=== PATIENT | male | born 1975 | race Caucasian/White ===

== ENCOUNTER 2017-01-27 21:22 | Inpatient (IN) | payer OTHER ==
--- NOTE | ~2017-01-27 | HP ---
Unit #: [id number] #: [id number] Patient: TRUMAN BUCK [id number] [place] [address] [id number] MR#: [id number] NAME: TRUMAN BUCK ROOM: P204 Age: 41 Sex: M Admission Date: 01/27/2017 : 1975 Attending Physician: Eleni Fink M.D. Admitting Physician: Eleni Fink M.D. Primary Care Physician: Primary Care Physician No HISTORY AND PHYSICAL HISTORY OF PRESENT ILLNESS Truman is a 41 year old admitted to [address] [place] [address] because of his drug use which includes heroin and fentanyl. PAST MEDICAL HISTORY 1. Long history of poly-illicit substance abuse to include cocaine, opioids, fentanyl and heroin. 2. History of alcohol abuse. 3. Hepatitis C. 4. Factor V deficiency. PAST SURGICAL HISTORY Nothing reported. ALLERGIES Morphine, NSAIDs. SOCIAL HISTORY Smokes 1 pack per day. Drinks alcohol frequently. Has a long history of illicit substance abuse to include IV drugs. FAMILY HISTORY Medically noncontributory. REVIEW OF SYSTEMS CONSTITUTIONAL: No fever or chills. HEENT: Denies any sore throat, ear pain or runny nose. CARDIOVASCULAR: Denies chest pain, irregular heart rhythm or palpitations. CHEST: Denies shortness of breath or cough. No hemoptysis. GASTROINTESTINAL: Denies nausea, vomiting, diarrhea or chronic constipation. ENDOCRINE: Denies history of increased thirst or urination. No recent significant weight loss or gain. GENITOURINARY: Denies dysuria, frequency, or hematuria. SKIN: Denies any rashes. HEMATOLOGIC: Denies history of increased bleeding or bruising. MUSCULOSKELETAL: Denies any hot, swollen joints. No generalized muscle pain. NEUROLOGIC: Denies problems with vision or speech. No frequent, severe headaches. No numbness, tingling or weakness in any extremities. Denies loss of bladder or bowel control. CURRENT MEDICATIONS Unit #: [id number] #: [id number] Patient: TRUMAN BUCK 1. Detox protocol. 2. Effexor XR 75 mg q.h.s. 3. Requip 0.25 mg q.h.s. 4. Xarelto 20 mg daily. 5. Seroquel 100 mg daily. 6. Minipress 6 mg q.h.s. PHYSICAL EXAMINATION GENERAL: Alert, well-nourished, in no apparent distress. VITAL SIGNS: Blood pressure 100/64, heart rate 80, respirations 16, temperature 98.6. WEIGHT: 192. HEIGHT: 5 feet 11 inches. SKIN: Warm and dry without rash or lesion. HEENT: Normocephalic. TMs not viewed. Oral and nasal passages clear. Conjunctivae clear. PERRLA. EOMs intact. NECK: Supple without lymphadenopathy or thyromegaly. HEART: Regular rate and rhythm without murmur. LUNGS: Clear. ABDOMEN: Soft, nontender. : Not done. EXTREMITIES: No evidence of cyanosis, clubbing or edema. Moves all without focal deficit. NEUROLOGICAL: Grossly within normal limits. Cranial Nerves: II: Visual newell are intact. III, IV AND : Extraocular movements are intact. Pupils are equal, round and reactive to light. V: Facial sensation is grossly normal. VII: Facial movements and expression are normal. VIII: Auditory acuity grossly intact. IX, X: Uvula is midline. Phonation is normal. XI: Patient shrugs shoulders and turns head normally. XII: Tongue protrudes in the midline. Sensory and Motor Function: Sensory and motor sensation is grossly normal. Motor: moves all extremities well. Coordination: Gait is normal. Deep Tendon Reflexes: Intact. IMPRESSION Psychiatric admission. RECOMMENDATIONS PSYCHIATRIC: Per psychiatrist. MEDICAL: 1. See no contraindications to participate in facility's activities. 2. Continue Xarelto. MEDICAL PROGNOSIS Good. MEDICAL CONDITION Stable. Dictated by... [place] P.A.-C. for Casie Monterroso M.D. Unit #: [id number] #: [id number] Patient: TRUMAN BUCK CAMILA/jacquelin TD: 01/28/2017 21:50 JOB #: [id number] HISTORY AND PHYSICAL Page 1 of 1 X [place] HISTORY AND PHYSICAL
--- NOTE | ~2017-01-27 | PA ---
Unit #: [id number] #: [id number] Patient: FLORIDA HAMILTON [id number] [facility] [address] [place] [address] [id number] I MR#: [id number] NAME: FLORIDA HAMILTON ROOM: P204 Age: 41 Sex: M Admission Date: 01/27/2017 : 1975 Date of Assessment: 01/28/2017 Attending Physician: Eleni Fink M.D. Admitting Physician: Eleni Fink M.D. PSYCHIATRIC ASSESSMENT DATE OF SERVICE 01/28/2017. IDENTIFYING DATA Mr. Hamilton is a 41-year-old white male, who is a resident of [place], [place] and was self-referred to the hospital on a voluntary basis. CHIEF COMPLAINT "I overdosed on heroin and fentanyl." HISTORY OF PRESENT ILLNESS Mr. Hamilton is a 41-year-old white male with history of substance abuse and dependence, was brought to the hospital by his fiancee for self-reported overdose on heroin and fentanyl "about 150 dollars IV." The patient reports another recent overdose on Wellbutrin, which he reports hospitalization at [facility]. Reports that he is still having suicidal thoughts before to leave the hospital. He would overdose and also has been homicidal thoughts towards "people in general." He reports that he has been having thoughts of "shooting." He reports that he does not have any access to gun and reports that he has had suicidal thoughts because his girlfriend stated that she will leave him today if he did not stop using drugs. He also reports hearing male voices which commanded to telling him to kill himself. His girlfriend stated that the patient is out of control "I'm worried that he is going to kill himself." The patient was seen to be anxious, withdrawn, and does report some significant depression, anxiety, irritability, consequences of addiction, inability to function, and take care of himself and having strange relationships and expressing feelings of hopelessness and helplessness, and suicidal ideations and as such, recommendation for inpatient level of care for safety and stabilization was made and the patient was transferred to us. SUBSTANCE ABUSE HISTORY The patient reports history of alcohol, cocaine, and opioid abuse, and currently opioids appear to be his drug of choice as he reports that he has been using 2 g of heroin on daily basis and has been drinking a fifth of whiskey on daily basis and has also been using cocaine on a daily basis. PAST PSYCHIATRIC HISTORY The patient has had history of inpatient psychiatric hospitalization at [facility], and has been diagnosed and treated for mood disorder and is currently on a combination of Seroquel, prazosin, and Unit #: [id number] #: [id number] Patient: FLORIDA HAMILTON. PAST MEDICAL HISTORY The patient's medical history is significant for factor V deficiency and hepatitis C. ALLERGIES Morphine and NSAIDS. PERSONAL AND SOCIAL HISTORY A 41-year-old white male, who reports that he lives at home with his girlfriend and has fairly decent social support system. MENTAL STATUS EXAMINATION Middle-aged white male, who was casually dressed with marginal personal hygiene, appears to be in distress and discomfort. He was awake and alert on interaction with intact orientation to time, place, and person. His mood was anxious and depressed with a congruent affect. His speech was slow and restricted in content. His thought processes were disorganized with some looseness of associations and suicidal ideations. His insight and judgment remain significantly impaired. DIAGNOSTIC IMPRESSION Psychiatric: Major depressive disorder, recurrent, moderate, without psychotic features; opioid dependence, moderate and acute withdrawals; alcohol dependence, moderate and acute withdrawals. Medical: Hepatitis C, factor V deficiency. Stressors: Moderate psychosocial stressors. TREATMENT PLAN 1. The patient has presented with history of substance abuse and mood disorder, and has been decompensating and will need inpatient hospitalization for detoxification, safety, and stabilization. We will start him on detox protocol. We will closely monitor for any worsening withdrawal symptoms. 2. Supportive therapy was provided to the patient. 3. Safe, structured, and nourishing environment will be provided. ESTIMATED LENGTH OF STAY 5 to 7 days. ABILITY TO HELP SELF Limited. WILLINGNESS TO HELP SELF The patient appears to be willing to help self. STRENGTHS 1. Communicative. 2. Cooperative. PROBLEMS 1. Chronic dysphoric symptoms. 2. Poor social support system. DISCHARGE CRITERIA This will be contingent upon the patient's ability to show resolution of his depression and anxiety and his ability to stay safe to himself, particularly after discharge from the hospital. Unit #: [id number] #: [id number] Patient: FLORIDA HAMILTON Dictated by... Uzair Gar/deyanira TD: 01/28/2017 07:15 JOB #: [id number] PSYCHIATRIC ASSESSMENT Page 1 of 1 X Eleni Fink MD PSYCHIATRIC ASSESSMENT
--- NOTE | ~2017-01-27 | DS ---
Unit #: [id number] #: [id number] Patient: FLORIDA HAMILTON [id number] [facility] [address] [id number] I MR#: [id number] NAME: FLORIDA HAMILTON ROOM: P204 Age: 41 Sex: M Admission Date: 01/27/2017 : 1975 Discharge Date: 02/01/2017 Attending Physician: Eleni Fink M.D. Primary Care Physician: Primary Care Physician No DISCHARGE SUMMARY IDENTIFYING DATA Mr. Hamilton is a 41-year-old white male, who is a resident of [place], [place], and was self-referred to the hospital. DISCHARGE DIAGNOSES Psychiatric: Major depressive disorder, recurrent, moderate, without psychotic features; opioid dependence, moderate and acute withdrawals; alcohol dependence, moderate and acute withdrawals. Medical: Hepatitis C, factor V deficiency. Stressors: Moderate psychosocial stressors. HISTORY OF PRESENT ILLNESS Please see initial psychiatric evaluation for details. PAST PSYCHIATRIC HISTORY Please see initial psychiatric evaluation for details. PAST MEDICAL HISTORY Please see initial psychiatric evaluation for details. HOSPITAL COURSE The patient was admitted to the adult psychiatric and chemical dependency unit at [facility] luisa Weinstein and was oriented to the hospital environment. Routine p.r.n. medications were initiated, and he was started on the alcohol and opioid detox protocol and he was closely monitored. He was anxious, withdrawn, and rather seclusive to himself and was noticed to be unkempt, disheveled, and unable to carry on a meaningful conversation. However, he was exhibiting significant depressive symptoms and Effexor XR and Seroquel were initiated and he was closely monitored. He was taking the medications regularly and was able to come out of the detox without any complications and was willing to continue treatment on an outpatient basis and as such, it was decided that he will be discharged home and will continue treatment on an outpatient basis. DISCHARGE MEDICATIONS Seroquel 100 mg at bedtime for mood, Xarelto 20 mg a day for hypercoagulability, Requip 0.25 mg at bedtime for restless legs syndrome, Minipress 6 mg at bedtime for hypertension, Effexor XR 75 mg a day for depression. DISCHARGE CONDITION Stable. PROGNOSIS Unit #: [id number] #: [id number] Patient: FLORIDA HAMILTON. Dictated by... Uzair Gar/deyanira TD: 02/01/2017 07:21 JOB #: [id number] DISCHARGE SUMMARY Page 1 of 1 X Eleni Fink MD X DISCHARGE SUMMARY
--- NOTE | ~2017-01-27 | PN ---
Unit #: [id number] #: [id number] Patient: FLORIDA HAMILTON [id number] [facility] [address] [place] [address] [id number] I MR#: [id number] NAME: FLORIDA HAMILTON ROOM: P204 Age: 41 Sex: M Admission Date: 01/27/2017 : 1975 Attending Physician: Eleni Fink M.D. Admitting Physician: Eleni Fink M.D. Primary Care Physician: Primary Care Physician Sandy ROD NOTES DATE 01/30/2017 DISCUSSION Mr. Hamilton is a 41-year-old, white male with substance abuse and mood disorder who was seen today and chart was reviewed and case was discussed with the staff. He has been anxious, withdrawn and rather seclusive to himself. Meanwhile, he has been cooperative with the treatment recommendations. He has been taking the medication and tolerating them fairly well with no reported side effects. MENTAL STATUS EXAM Middle-aged white male who was casually dressed with fair personal hygiene, appears to be in no acute distress or discomfort. He was awake and alert on interaction with intact orientation. His mood was anxious and depressed with congruent affect. He denies any suicidal or homicidal ideation. His insight and judgement remains slightly impaired. TREATMENT PLAN 1. We will continue him on his current treatment protocol. We will monitor his response to the medication and make further adjustments as needed. 2. We will continue to follow up. Dictated by... Uzair Gar/travis TD: 01/31/2017 22:55 JOB #: [id number] Unit #: [id number] #: [id number] Patient: FLORIDA HAMILTON LUPIS PROGRESS NOTES Page 1 of 1 X Eleni Fink MD PROGRESS NOTE
--- NOTE | ~2017-01-27 | PN ---
Unit #: [id number] #: [id number] Patient: FLORIDA HAMILTON [id number] [facility] [address] [place] [address] [id number] I MR#: [id number] NAME: FLORIDA HAMILTON ROOM: P204 Age: 41 Sex: M Admission Date: 01/27/2017 : 1975 Attending Physician: Eleni Fink M.D. Admitting Physician: Eleni Fink M.D. Primary Care Physician: Primary Care Physician Sandy ROD NOTES DATE 01/31/2017 DISCUSSION Mr. Hamilton is a 41-year-old white male with substance abuse and mood disorder who was seen today and chart was reviewed and case was discussed with the staff. He has been anxious, withdrawn though appears to be doing better in his mood and functioning and has been cooperative with treatment recommendations. He has been taking medications and tolerating them fairly well with no reported side effects. MENTAL STATUS EXAMINATION Middle-aged white male who was casually dressed with fair personal hygiene and appears to be in no acute distress or discomfort. He was awake and alert with intact orientation. His mood was anxious with congruent affect. He denies any suicidal or homicidal ideations. His insight and judgement remains slightly impaired. TREATMENT PLAN 1. Will continue on his current medications and treatment protocol. Will monitor response and make further adjustments as needed. 2. Will continue to follow up. Dictated by... Eleni Fink M.D. IAA/sivah TD: 02/01/2017 22:55 JOB #: [id number] Unit #: [id number] #: [id number] Patient: FLORIDA HAMILTON LUPIS PROGRESS NOTES Page 1 of 1 X Eleni Fink MD PROGRESS NOTE
--- NOTE | ~2017-01-27 | PN ---
Unit #: [id number] #: [id number] Patient: FLORIDA HAMILTON [id number] [facility] [address] [place] [address] [id number] I MR#: [id number] NAME: FLORIDA HAMILTON ROOM: P204 Age: 41 Sex: M Admission Date: 01/27/2017 : 1975 Attending Physician: Eleni Fink M.D. Admitting Physician: Eleni Fink M.D. Primary Care Physician: Primary Care Physician Sandy ROD NOTES DATE 01/29/2017 DISCUSSION Mr. Hamilton is a 41-year-old, white male who was seen today and chart was reviewed and case was discussed with the staff. He has been anxious, withdrawn though has not shown any agitation, irritability and has been cooperative with treatment recommendations as he has been taking medications and tolerating them fairly well with no reported side effects. MENTAL STATUS EXAM Middle-aged white male who was casually dressed with fair personal hygiene, appears to be in no acute distress or discomfort. He was awake and alert with impaired attention and concentration. His mood was anxious with congruent affect. He denies any suicidal or homicidal ideation. His insight and judgement remains slightly impaired. TREATMENT PLAN 1. We will continue him on his current medications and treatment protocol. We will monitor his response to medications and make further adjustments as needed. 2. We will continue to follow up. Dictated by... Uzair Gar/travis TD: 01/31/2017 03:28 JOB #: [id number] Unit #: [id number] #: [id number] Patient: FLORIDA HAMILTON [facility]ADDY PROGRESS NOTES Page 1 of 1 X Eleni Fink MD PROGRESS NOTE
[2017-01-29 12:14] LABS: BASOPHIL% 0.5 % (0-2.5); EOSINOPHIL# 0.3 X10e3 (0-0.7); EOSINOPHIL% 3.4 % (0.0-7.0); HEMATOCRIT 47.8 % (38.0-50.0); HEMOGLOBIN 15.6 gm/dL (13.0-16.0); LYMPHOCYTE# 2.3 X10e3 (1.0-3.5); MEAN CELL VOLUME 85.8 FL (83-96); MEAN CORPUSCULAR HEMOGLOBIN 27.9 PG (28-34); MEAN CORPUSCULAR HGB CONC 32.5 g/dL (30-36); MEAN PLATELET VOLUME 9.3 FL (6.5-11.5); MONOCYTE# 0.3 X10e3 (0-1.0); MONOCYTE% 3.5 % (3.0-12.0); NEUTROPHIL# 5.6 X10e3 (1.5-7.1); NEUTROPHIL% 65.6 % (40-75); PLATELET COUNT 226 X10e3 (140-420); RED BLOOD COUNT 5.57 X10e (3.90-5.60); RED CELL DISTRIBUTION WIDTH 14.8 % (11.0-15.5); WHITE BLOOD COUNT 8.5 X10e3 (4.0-10.5)
[2017-01-29 12:15] LABS: DIFF IND NO
[2017-01-29 13:00] LABS: URINE APPEARANCE CLOUDY; URINE BILIRUBIN NEG (NEG); URINE BLOOD NEG (NEG); URINE COLOR YELLOW; URINE GLUCOSE NEG (NEG); URINE KETONE NEG (NEG); URINE LEUKOCYTE ESTERASE NEG (NEG); URINE NITRATE NEG (NEG); URINE PROTEIN NEG (NEG); URINE SPECIFIC GRAVITY 1.021 (1.003-1.035)
[2017-01-29 13:18] LABS: THYROID STIMULATING HORMONE 0.54 uIU/ml (0.34-5.60)
[2017-01-29 13:24] LABS: ALBUMIN SERUM 3.6 g/dL (3.5-5.0); BILIRUBIN,TOTAL 0.7 mg/dL (0.2-2.0); BUN/CREATININE RATIO 13.63; CREATININE SERUM 1.1 mg/dL (0.6-1.4); GLOM FILT RATE Estimated 83.5 mL/min (>60); POTASSIUM 4.5 mmol/L (3.5-5.1); PROTEIN TOTAL SERUM 6.4 g/dL (6.0-8.3)
[2017-01-29 13:25] LABS: FREE THYROXIN (T4) 0.88 ng/dL (0.58-1.64)
[2017-01-29 13:35] LABS: AMPHETAMINE NEG (NEG); BARBITURATES NEG (NEG); BENZODIAZEPINES POS (NEG); COCAINE POS (NEG); MARIJUANA NEG (NEG); OPIATES POS (NEG); TRICYCLIC ANTIDEPRESSANTS NEG (NEG); U METHADONE NEG (NEG)
[2017-01-30 11:09] LABS: URINE APPEARANCE CLOUDY; URINE BILIRUBIN NEG (NEG); URINE BLOOD NEG (NEG); URINE COLOR YELLOW; URINE GLUCOSE NEG (NEG); URINE KETONE NEG (NEG); URINE LEUKOCYTE ESTERASE NEG (NEG); URINE NITRATE NEG (NEG); URINE PROTEIN NEG (NEG); URINE UROBILINOGEN 0.2 MG/DL (NEG)
[2017-01-30 11:20] LABS: AMPHETAMINE NEG (NEG); BARBITURATES NEG (NEG); BENZODIAZEPINES POS (NEG); COCAINE POS (NEG); MARIJUANA NEG (NEG); OPIATES NEG (NEG); TRICYCLIC ANTIDEPRESSANTS NEG (NEG); U METHADONE NEG (NEG)
[2017-02-09] MEDS ORDERED: TEGRETOL XR PO (02:14)
[2017-02-09] MEDS ORDERED: SEROQUEL100 MG PO (02:14)
[2017-02-09] MEDS ORDERED: XARELTO20 MG PO (02:15)
== END 2017-02-01 10:00 | DRG 885 ==
LOC: P2S 21:22
PROVIDERS: Psychiatry & Neurology Psychiatry
PROC: HZ2ZZZZ Detoxification Services for Substance Abuse Treatment (ICD-10-PCS; principal; 2017-01-27)
DX: F33.1 Major depressive disorder, recurrent, moderate (principal); D68.51 Activated protein C resistance; F11.23 Opioid dependence with withdrawal; F10.239 Alcohol dependence with withdrawal, unspecified; B19.20 Unspecified viral hepatitis C without hepatic coma; F41.9 Anxiety disorder, unspecified; F17.210 Nicotine dependence, cigarettes, uncomplicated; Z79.01 Long term (current) use of anticoagulants
CPT/HCPCS: 80053; 80307; 81003; 84439; 84443; 85025

== ENCOUNTER 2017-02-09 02:24 | Emergency (ER) | payer OTHER ==
[~2017-02-09 02:24] MED LIST: SEROQUEL100 MG PO; TEGRETOL XR PO; XARELTO20 MG PO
[2017-02-09] MEDS ORDERED: VEETIDS 500500 M1 PO (02:42)
== END 2017-02-09 02:50 | disposition home or self-care (01) ==
LOC: SED 02:24
DX: K08.89 Other specified disorders of teeth and supporting structures (principal); B19.20 Unspecified viral hepatitis C without hepatic coma; J45.909 Unspecified asthma, uncomplicated; F41.8 Other specified anxiety disorders; F17.210 Nicotine dependence, cigarettes, uncomplicated; Z90.49 Acquired absence of other specified parts of digestive tract; Z90.89 Acquired absence of other organs; Z88.5 Allergy status to narcotic agent; Z88.8 Allergy status to other drugs, medicaments and biological substances; Z91.013 Allergy to seafood
CPT/HCPCS: 99283

== ENCOUNTER 2017-05-18 13:07 | Inpatient (IN) | payer OTHER ==
[~2017-05-18] VITALS: Ht 180.3 cm; Wt 83.9 kg
--- NOTE | ~2017-05-18 | PN ---
Unit #: [id number] #: [id number] Patient: FLORIDA HAMILTON [id number] [facility] [address] [place] [address] [id number] I MR#: [id number] NAME: FLORIDA HAMILTON ROOM: P110 Age: 41 Sex: M Admission Date: 05/18/2017 : 1975 Attending Physician: Eleni Fink M.D. Admitting Physician: Eleni Fink M.D. Primary Care Physician: Generic Doctor Not In System [facility] PROGRESS NOTES DATE 05/21/2017 DISCUSSION Mr. Hamilton is a 41-year-old white male who was seen today and chart was reviewed and case was discussed with the staff. He has had a rough day yesterday with increasing depression, hostility and irritability and episodes of verbal and physical aggression requiring p.r.n. medications to be given on a regular basis and despite an increase in routine medications, he has not been able to show a therapeutic response and as such will continue to monitor his response to medications and treatment interventions and will make further adjustments as needed. Dictated by... Uzair Gar/jacquelin TD: 05/21/2017 21:27 JOB #: [id number] [facility] PROGRESS NOTES Page 1 of 1 X Eleni Fink MD PROGRESS NOTE
--- NOTE | ~2017-05-18 | PN ---
Unit #: [id number] #: [id number] Patient: FLORIDA HAMILTON [id number] [facility] [address] [place] [address] [id number] I MR#: [id number] NAME: FLORIDA HAMILTON ROOM: P110 Age: 41 Sex: M Admission Date: 05/18/2017 : 1975 Attending Physician: Eleni Fink M.D. Admitting Physician: Eleni Fink M.D. Primary Care Physician: Generic Doctor Not In System [facility] PROGRESS NOTES DATE OF SERVICE: 05/23/2017 SUBJECTIVE Mr. Hamilton is a 41-year-old white male, who was seen today and chart was reviewed and case was discussed with the staff. He has been anxious, withdrawn, and rather seclusive to himself. Meanwhile, he has been cooperative with treatment recommendations, though staff informed me that he has been crushing his Xanax and putting in his food; however, he was not noticed to be snorting it. Meanwhile, his medications were adjusted yesterday and appears that he is doing better as he has had an uneventful day yesterday. MENTAL STATUS EXAMINATION Middle-aged white male, who was casually dressed with fair personal hygiene, appears to be in no acute distress or discomfort. He was awake and alert with impaired attention and concentration. His mood was anxious with a congruent affect. His speech was slow and restricted in content. He denies any suicidal or homicidal ideations and also denies any auditory or visual hallucinations. His insight and judgment remain slightly impaired. TREATMENT PLAN 1. We will continue his current medications and treatment protocol. We will monitor his response and make further adjustments as needed. 2. We will continue to follow up. Dictated by... Eleni Fink M.D. IAA/modl TD: 05/23/2017 08:16 JOB #: [id number] Unit #: [id number] #: [id number] Patient: FLORIDA HAMILTON [facility] PROGRESS NOTES Page 1 of 1 X Eleni Fink MD X PROGRESS NOTE
--- NOTE | ~2017-05-18 | PN ---
Unit #: [id number] #: [id number] Patient: FLORIDA HAMILTON [id number] [facility] [address] [place] [address] [id number] I MR#: [id number] NAME: FLORIDA HAMILTON ROOM: P110 Age: 41 Sex: M Admission Date: 05/18/2017 : 1975 Attending Physician: Eleni Fink M.D. Admitting Physician: Eleni Fink M.D. Primary Care Physician: Generic Doctor Not In System [facility] PROGRESS NOTES DATE May 22, 2017 DISCUSSION Mr. Hamilton is a 41-year-old white male, who was seen today and chart was reviewed and the case was discussed with the staff. He has been anxious, withdrawn, and rather seclusive to himself. Meanwhile, he has been cooperative with the treatment recommendations and he has been taking the medications and tolerating them fairly well with no reported side effects. MENTAL STATUS EXAMINATION Young white male, who was casually dressed with fair personal hygiene and appears to be in no acute distress or discomfort. He was awake and alert with impaired attention and concentration. His mood is anxious with a congruent affect. His speech is slow and restricted in content. The patient denies any suicidal or homicidal ideations, and also denies any auditory or visual hallucinations. His insight and judgment remain slightly impaired. TREATMENT PLAN 1. We will continue him on his current medications and treatment protocol, and will monitor his response to the medications, and make further adjustments as needed. 2. We will continue to followup. Dictated by... Uzair Gar/alberto TD: 05/23/2017 09:26 JOB #: [id number] Unit #: [id number] #: [id number] Patient: FLORIDA HAMILTON PROGRESS NOTES Page 1 of 1 X Eleni Fink MD PROGRESS NOTE
--- NOTE | ~2017-05-18 | HP ---
Unit #: [id number] #: [id number] Patient: FLORIDA BUCK [id number] [facility] [address] [place] [address] [id number] I MR#: [id number] NAME: FLORIDA BUCK ROOM: P110 Age: 41 Sex: M Admission Date: 05/18/2017 : 1975 Attending Physician: Eleni Fink M.D. Admitting Physician: Eleni Fink M.D. Primary Care Physician: Generic Doctor Not In System HISTORY AND PHYSICAL HISTORY OF PRESENT ILLNESS Patient is a 41-year-old male admitted to [address] [place] [address] on 05/18/2017 for suicidal ideations. Patient was very sleepy when I came to see him. Some of the information was retrieved from the chart due to patient falling asleep during assessment. PAST MEDICAL HISTORY 1. Hepatitis C. 2. Factor V Leiden. 3. Neck pain. 4. Asthma. 5. Degenerative disc disease. 6. Atrial fibrillation. PAST SURGICAL HISTORY Patient denies. ALLERGIES NSAIDs, morphine and Bactrim. SOCIAL HISTORY He is unemployed. He lives with his fiance. He smokes 2 pack of cigarettes daily. FAMILY HISTORY Noncontributory. REVIEW OF SYSTEMS CONSTITUTIONAL: No fever or chills. HEENT: Denies any sore throat, ear pain or runny nose. CARDIOVASCULAR: Denies chest pain, irregular heart rhythm or palpitations. CHEST: Denies shortness of breath or cough. No hemoptysis. GASTROINTESTINAL: Denies nausea, vomiting, diarrhea or chronic constipation. ENDOCRINE: Denies history of increased thirst or urination. No recent significant weight loss or gain. GENITOURINARY: Denies dysuria, frequency, or hematuria. SKIN: Denies any rashes. HEMATOLOGIC: Denies history of increased bleeding or bruising. MUSCULOSKELETAL: Denies any hot, swollen joints. No generalized muscle pain. NEUROLOGIC: Denies problems with vision or speech. No frequent, severe headaches. No numbness, tingling or weakness in any extremities. Denies Unit #: [id number] #: [id number] Patient: FLORIDA BUCK loss of bladder or bowel control. CURRENT MEDICATIONS 1. Midwest. 2. Xarelto. 3. Proventil. 4. Spiriva. 5. Thorazine. 6. Trileptal. 7. Protonix. 8. Cogentin. 9. Prazosin. 10. Klonopin. 11. Gabapentin. PHYSICAL EXAMINATION GENERAL: He is sleepy but in no acute distress. VITAL SIGNS: Temperature 97.4, heart rate 104, respirations 18, blood pressure 137/96. HEIGHT: 5 feet 11. WEIGHT: 187 pounds. SKIN: Warm and dry without rash or lesion. HEENT: Normocephalic. TMs not viewed. Oral and nasal passages clear. Conjunctivae clear. PERRLA. EOMs intact. NECK: Supple without lymphadenopathy or thyromegaly. HEART: Regular rate and rhythm without murmur. LUNGS: Clear. ABDOMEN: Soft, nontender. : Not done. EXTREMITIES: No evidence of cyanosis, clubbing or edema. Moves all without focal deficit. NEUROLOGICAL: Grossly within normal limits. Cranial Nerves: II: Visual newell are intact. III, IV AND : Extraocular movements are intact. Pupils are equal, round and reactive to light. V: Facial sensation is grossly normal. VII: Facial movements and expression are normal. VIII: Auditory acuity grossly intact. IX, X: Uvula is midline. Phonation is normal. XI: Patient shrugs shoulders and turns head normally. XII: Tongue protrudes in the midline. Sensory and Motor Function: Sensory and motor sensation is grossly normal. Motor: moves all extremities well. Coordination: Gait is normal. Deep Tendon Reflexes: Intact. IMPRESSION 1. Psychiatric admission. 2. Hepatitis C. 3. Factor V Leiden. 4. Neck pain. 5. Asthma. 6. Degenerative disc disease. 7. Atrial fibrillation. 8. Nicotine dependence. RECOMMENDATIONS PSYCHIATRIC: Per psychiatrist. MEDICAL: No contraindication to participate in facility's activities. Unit #: [id number] #: [id number] Patient: FLORIDA BUCK MEDICAL PROGNOSIS Fair. MEDICAL CONDITION Stable. Dictated by... German Silver/jacquelin TD: 05/19/2017 23:08 JOB #: [id number] HISTORY AND PHYSICAL Page 1 of 1 X MAISHA YEPEZ APRN X HISTORY AND PHYSICAL
--- NOTE | ~2017-05-18 | DS ---
Unit #: [id number] #: [id number] Patient: FLORIDA HAMILTON [id number] [facility] [address] [place] [address] [id number] I MR#: [id number] NAME: FLORIDA HAMILTON ROOM: P110 Age: 41 Sex: M Admission Date: 05/18/2017 : 1975 Discharge Date: 05/24/2017 Attending Physician: Eleni Fink M.D. Primary Care Physician: Generic Doctor Not In System DISCHARGE SUMMARY IDENTIFYING DATA Mr. Hamilton is a 41-year-old white male, who is a resident of [place], [place], and was self-referred to the hospital. DISCHARGE DIAGNOSES Psychiatric: Bipolar disorder, most recent episode depressed, recurrent, moderate, without psychotic features; alcohol dependence, moderate; cocaine abuse, moderate. Medical: None. Stressors: Moderate psychosocial stressors. HISTORY OF PRESENT ILLNESS Please see initial psychiatric evaluation for details. PAST PSYCHIATRIC HISTORY Please see initial psychiatric evaluation for details. PAST MEDICAL HISTORY Please see initial psychiatric evaluation for details. HOSPITAL COURSE The patient was admitted to the adult psychiatric unit at [facility] luisa Weinstein and was oriented to the hospital environment. Routine p.r.n. medications were initiated, and he was started back on his home medication; however, he was seen to be very agitated, hostile, volatile, and aggressive upon initial presentation, and medications were adjusted and Thorazine was started; however, he was needing p.r.n. medications, was ending up in seclusion on repeated basis, and Thorazine was titrated up to 100 mg t.i.d., but he was still not showing a therapeutic response, and Thorazine was then switched to Zyprexa and he appears to be doing better and was calmer and no agitation or aggression was noted and as such, it was decided that he will be discharged home and will continue treatment on an outpatient basis. DISCHARGE MEDICATIONS Zyprexa 10 mg b.i.d. for mood disorder. DISCHARGE CONDITION Stable. PROGNOSIS Fair. Unit #: [id number] #: [id number] Patient: FLORIDA HAMILTON Dictated by... Uzair Gar/deyanira TD: 05/24/2017 23:06 JOB #: [id number] DISCHARGE SUMMARY Page 1 of 1 X Eleni Fink MD DISCHARGE SUMMARY
--- NOTE | ~2017-05-18 | PA ---
Unit #: [id number] #: [id number] Patient: FLORIDA HAMILTON [id number] [facility] [address] [place] [address] [id number] I MR#: [id number] NAME: FLORIDA HAMILTON ROOM: P110 Age: 41 Sex: M Admission Date: 05/18/2017 : 1975 Date of Assessment: Attending Physician: Eleni Fink M.D. Admitting Physician: Eleni Fink M.D. Primary Care Physician: Generic Doctor Not In System PSYCHIATRIC ASSESSMENT DATE OF SERVICE 05/18/2017. IDENTIFYING DATA Mr. Hamilton is a 41-year-old, , white male, who is a resident of [place], [place], and is known to us from previous encounter, was self-referred to the hospital. CHIEF COMPLAINT "I've been depressed and I'm craving alcohol." HISTORY OF PRESENT ILLNESS Mr. Hamilton is a 41-year-old white male who brought himself to the hospital stating that he woke up anxious because of nightmares from history of trauma and reports that he packed his bags, so that it looked like he just left. His girlfriend went down the street and he attempted to hang himself on a tree with a string and rope to the tree branch and rope broke and reports that he was discharged from [facility] yesterday after 3 to 4 days, but stated that he had lied to them about feeling better because he was craving alcohol and reports that he continues to be suicidal because he is hearing voices, telling him to kill himself and others and was taken to the emergency room where an ER nurse reported the patient was brought in by police after being found walking on the street talking to himself and reports that he attempted to kill himself by hanging himself from a tree with a string, but the string broke and there were no witnesses for this incident. The patient reports that he was discharged from [facility] yesterday following an intentional overdose on Wellbutrin and that he left the hospital because he was craving from alcohol and still has been feeling suicidal and as such, was seen to be a significant threat and therefore recommendation for inpatient level of care for safety and stabilization was made. The patient was transferred to us. SUBSTANCE ABUSE HISTORY The patient reports history of cocaine abuse as well as alcohol dependence and reports that alcohol has been a problem as he has been drinking most of his life and his last drink was yesterday and reports that he has been drinking a fifth of alcohol a day and also has been snorting cocaine with the last use yesterday. PAST PSYCHIATRIC HISTORY The patient has had a history of inpatient psychiatric hospitalizations at [facility] and has been diagnosed and treated for Unit #: [id number] #: [id number] Patient: FLORIDA HAMILTON bipolar disorder and is currently on a combination of psychotropic medications, but does not appear to be showing a therapeutic response to medications. PAST MEDICAL HISTORY The patient's medical history is significant for hepatitis C, asthma, chronic pain, degenerative disk disease. ALLERGIES NSAIDs, morphine, Bactrim. PERSONAL AND SOCIAL HISTORY A 41-year-old white male, who reports that he lives at home with his fiance and has fairly decent social support system. MENTAL STATUS EXAMINATION Middle-aged white male, who was casually dressed with fair personal hygiene, appears to be in no acute distress or discomfort. He was awake and alert on interaction with intact orientation to time, place, and person. His mood was anxious and depressed with a congruent affect. His speech was slow and restricted in content. His thought processes were disorganized with some looseness of associations and flight of ideas and suicidal ideations as well as auditory hallucinations, which are command in nature. His insight and judgment remain significantly impaired. DIAGNOSTIC IMPRESSION Psychiatric: Bipolar disorder, most recent episode depressed, recurrent, moderate, without psychotic features; alcohol dependence, moderate; cocaine abuse, moderate. Medical: None. Stressors: Moderate psychosocial stressors. TREATMENT PLAN 1. The patient has presented with a history of mood disorder and substance abuse and has been decompensating and will need inpatient hospitalization for safety and stabilization. We will start him back on his home medications and we will monitor his response and make further adjustments as needed. 2. Supportive therapy was provided to the patient. 3. Safe, structured, and nourishing environment will be provided. ESTIMATED LENGTH OF STAY 4 to 5 days. ABILITY TO HELP SELF Limited. WILLINGNESS TO HELP SELF The patient appears to be willing to help self. STRENGTHS 1. Communicative. 2. Cooperative. PROBLEMS 1. Chronic dysphoric symptoms. Unit #: [id number] #: [id number] Patient: FLORIDA HAMILTON 2. Chronic chemical dependency. 3. Poor social support system. DISCHARGE CRITERIA This will be contingent upon the patient's ability to show resolution of his depression and anxiety and his ability to stay safe and sober, particularly after discharge from the hospital. Dictated by... Uzair Gar/deyanira TD: 05/19/2017 07:30 JOB #: [id number] PSYCHIATRIC ASSESSMENT Page 1 of 1 X Eleni Fink MD X PSYCHIATRIC ASSESSMENT
--- NOTE | ~2017-05-18 | PN ---
Unit #: [id number] #: [id number] Patient: FLORIDA HAMILTON [id number] [facility] [address] [place] [address] [id number] I MR#: [id number] NAME: FLORIDA HAMILTON ROOM: P110 Age: 41 Sex: M Admission Date: 05/18/2017 : 1975 Attending Physician: Eleni Fink M.D. Admitting Physician: Eleni Fink M.D. Primary Care Physician: Eryn Doctor Not In System PEASyntarga PROGRESS NOTES DATE OF SERVICE 05/20/2017 DISCUSSION Mr. Hamilton is a 41-year-old white male who was seen today. Chart was reviewed and case was discussed with the staff. He has been anxious and withdrawn and has been having some significant mood swings, irritability, and impulsivity and apparently was in a code and was put in restraints upon initial presentation on to the unit and was complaining of having some pain in some injury sustained from that event yesterday and was sent out of the emergency room for medical clearance, and no medical abnormalities are found, and he was transferred back to us. He reports persistent mood swings and anger and agitation, and anxiety and feelings of hopelessness. He does not feel that his current regimen of medication is effectively (1) __ his aggression. MENTAL STATUS EXAMINATION Young white male who is casually dressed with fair personal hygiene, appears to be in no acute distress or discomfort. The patient was awake and alert with impaired attention and concentration. His mood is anxious with congruent affect. He denies any suicidal or homicidal ideations. His insight and judgment remain slightly impaired. TREATMENT PLAN 1. We will continue him on his current medications and treatment protocol. We will monitor his response to the medications and make further adjustments as needed. 2. We will continue to follow up. Dictated by... Eleni Fink M.D. IAA/justing TD: 05/20/2017 10:35 JOB #: [id number] Unit #: [id number] #: [id number] Patient: FLORIDA HAMILTON [facility] PROGRESS NOTES Page 1 of 1 X Eleni Fink MD PROGRESS NOTE
--- NOTE | ~2017-05-18 | PN ---
Unit #: [id number] #: [id number] Patient: FLORIDA HAMILTON [id number] [facility] [address] [place] [address] [id number] I MR#: [id number] NAME: FLORIDA HAMILTON ROOM: P110 Age: 41 Sex: M Admission Date: 05/18/2017 : 1975 Attending Physician: Eleni Fink M.D. Admitting Physician: Eleni Fink M.D. Primary Care Physician: Generic Doctor Not In System [facility] PROGRESS NOTES DATE OF SERVICE 05/19/2017 DISCUSSION Mr. Hamilton is a 41-year-old white male who was seen today. Chart was reviewed and case was discussed with the staff. He has been anxious, withdrawn, and rather seclusive to himself. Meanwhile, he has been cooperative with the treatment recommendations and has been taking the medications and tolerating them fairly. However, he had a rough night last night with increasing agitation and aggression, and towards suspender cutter hours he did end up in seclusion and later restraints due to physical aggression, and intramuscular injection of Geodon was given, and he was able to finally fall asleep. We will continue to monitor his response to medications. We will make further adjustments as needed. Dictated by... Uzair Gar/aditya TD: 05/19/2017 13:27 JOB #: [id number] [facility] PROGRESS NOTES Page 1 of 1 X Eleni Fink MD PROGRESS NOTE
[~2017-05-18 13:07] MED LIST changes: +VEETIDS 500500 M1 PO
== END 2017-05-24 10:00 | DRG 885 ==
LOC: P1S 16:38
DX: F31.32 Bipolar disorder, current episode depressed, moderate (principal); I48.91 Unspecified atrial fibrillation; F14.10 Cocaine abuse, uncomplicated; F10.20 Alcohol dependence, uncomplicated; F17.210 Nicotine dependence, cigarettes, uncomplicated
CPT/HCPCS: J0515; J1200; J1630; J2060; J3486

== ENCOUNTER 2017-05-19 14:41 | Emergency (ER) | payer OTHER ==
[~2017-05-19] VITALS: Ht 180.3 cm; Wt 81.6 kg
--- NOTE | ~2017-05-19 | CR243 ---
[facility] A Service of [facility] & [facility] RADIOLOGY TEXT RESULTS PATIENT: FLORIDA BUCK LOCATION: [facility] : [birth year] UNIT #: [id number] AGE: [address]: Federico Quinones MD SEX: M ORDER DR: [id number] [facility] [address] [place], [place] [address] [id number] MR#: [id number] Acc #: [id number] NAME: FLORIDA BUCK : 1975 SEX: M STUDY DATE/TIME: 05/19/2017 16:09 UNIT: [facility] ROOM: STUDY DESCRIPTION: CR Thoracic Spine 3 Views Attending Physician: Federico Quinones M.D. Ordering Physician: Federico Quinones M.D. MEDICAL IMAGING REPORT This report is preliminary unless electronic signature is present EXAM Thoracic spine 3 views INDICATIONS Back pain since February 2016. COMPARISON STUDIES No comparisons. FINDINGS The vertebral body heights are maintained. The alignment is normal. The disc spaces are preserved. IMPRESSION Negative. Dictated by... Simon Hernandez M.D. THIS IS AN ELECTRONICALLY VERIFIED REPORT Simon Hernandez M.D. at 05/22/2017 9:06 AM ARS/rich TD: 05/19/2017 19:21 JOB #: [id number] MEDICAL IMAGING REPORT Page 1 of 1 COPY
--- NOTE | ~2017-05-19 | CR58 ---
[facility] A Service of [facility] & [facility] RADIOLOGY TEXT RESULTS PATIENT: FLORIDA BUCK LOCATION: [facility] : [birth year] UNIT #: [id number] AGE: [address]: Federico Quinones MD SEX: M ORDER DR: [id number] [facility] [address] [place], [place] [address] [id number] E MR#: [id number] Acc #: [id number] NAME: FLORIDA BUCK : 1975 SEX: M STUDY DATE/TIME: 05/19/2017 16:09 UNIT: [facility] ROOM: STUDY DESCRIPTION: CR Cervical Spine 2 or 3 Views Attending Physician: Federico Quinones M.D. Ordering Physician: Federico Quinones M.D. MEDICAL IMAGING REPORT This report is preliminary unless electronic signature is present EXAM Cervical spine 5 views INDICATIONS Neck pain since March 08 but worse yesterday. FINDINGS Vertebral body heights and alignment maintained. The disc spaces are preserved. The odontoid is intact and the lateral masses are well aligned. No prevertebral soft tissue swelling. IMPRESSION Negative. Dictated by... Simon Hernandez M.D. THIS IS AN ELECTRONICALLY VERIFIED REPORT Simon Hernandez M.D. at 05/22/2017 9:06 AM BOLIVAR/rich TD: 05/19/2017 19:21 JOB #: [id number] MEDICAL IMAGING REPORT Page 1 of 1 COPY
--- NOTE | ~2017-05-19 | CR181 ---
[facility] A Service of [facility] & [facility] RADIOLOGY TEXT RESULTS PATIENT: FLORIDA BUCK LOCATION: [facility] : [birth year] UNIT #: [id number] AGE: [address]: Federico Quinones MD SEX: M ORDER DR: [id number] [facility] [address] [place], [place] [address] [id number] MR#: [id number] Acc #: [id number] NAME: FLORIDA BUCK : 1975 SEX: M STUDY DATE/TIME: 05/19/2017 16:10 UNIT: [facility] ROOM: STUDY DESCRIPTION: CR Lumbar Spine 2 or 3 Views Attending Physician: Federico Quinones M.D. Ordering Physician: Federico Quinones M.D. MEDICAL IMAGING REPORT This report is preliminary unless electronic signature is present EXAM Lumbar spine 3 views INDICATIONS Low back pain since March 08, worse since yesterday. COMPARISON STUDIES No comparisons. FINDINGS Vertebral body heights and alignment are maintained. Vascular calcifications. Disc spaces preserved. Right upper quadrant surgical clips. IMPRESSION Negative. Dictated by... Simon Hernandez M.D. THIS IS AN ELECTRONICALLY VERIFIED REPORT Simon Hernandez M.D. at 05/22/2017 9:06 AM ARS/rich TD: 05/19/2017 19:26 JOB #: [id number] MEDICAL IMAGING REPORT Page 1 of 1 COPY
== END 2017-05-19 17:20 ==
LOC: CED 14:41
DX: S16.1XXA Strain of muscle, fascia and tendon at neck level, initial encounter (principal); S29.012A Strain of muscle and tendon of back wall of thorax, initial encounter; S39.012A Strain of muscle, fascia and tendon of lower back, initial encounter; F41.9 Anxiety disorder, unspecified; F10.10 Alcohol abuse, uncomplicated; F11.10 Opioid abuse, uncomplicated; Z90.49 Acquired absence of other specified parts of digestive tract; F17.210 Nicotine dependence, cigarettes, uncomplicated; Z79.899 Other long term (current) drug therapy; Z88.5 Allergy status to narcotic agent; Z88.8 Allergy status to other drugs, medicaments and biological substances; X58.XXXA Exposure to other specified factors, initial encounter
CPT/HCPCS: 72040; 72072; 72100; 99283